=== PATIENT | female | born 1980 | race Caucasian/White ===

== ENCOUNTER 2017-05-05 20:31 | Emergency (ER) | payer OTHER ==
[2017-05-05 21:13] VITALS: BP 153/83
== END 2017-05-05 22:31 | disposition home or self-care (01) ==
LOC: ED 20:31
DX: S41.152A Open bite of left upper arm, initial encounter (principal); W50.3XXA Accidental bite by another person, initial encounter; Y93.89 Activity, other specified; Y99.8 Other external cause status; Y92.89 Other specified places as the place of occurrence of the external cause
CPT/HCPCS: 90715